=== PATIENT | male | born 1945 | race Caucasian/White ===

== ENCOUNTER 2022-02-01 10:20 | Inpatient (IN) ==
[2022-02-01 11:00] LABS: Basophils % 0.4 % (0.0-0.8); Eosinophils # 0.1 10*3/uL (0.0-0.87); Eosinophils % 1.3 % (0.00-10.9); Hematocrit 33.4 VOL% (42.0-52.0); Hemoglobin 10.4 GM/DL (14.0-18.0); Immature Granulocytes % 0.5 %; Immature Granulocytes Absolute 0.04 #; Lymphocytes # 0.8 10*3/uL (1.4-4.0); Lymphocytes % 10.2 % (21.2-54.2); Mean Corpuscular HGB Conc 31.1 GM/DL (32-36); Mean Corpuscular Volume 112.8 FL (87-102); Mean Platelet Volume 9.6 FL (9.6-12.0); Monocytes # 0.5 10*3/uL (0.11-0.8); Monocytes % 6.1 % (1.7-12.7); Neutrophils % 81.5 % (38.7-73.9); Platelet Count 225 T/CUMM (130-400); Red Blood Count 2.96 MC/CUMM (3.8-5.5); Red Cell Distribution Width 14.1 % (9.3-17.3); White Blood Count 7.4 T/CUMM (4-12)
[2022-02-01 11:23] LABS: Albumin 2.8 G/DL (3.4-5.0); Bilirubin,Total 1.3 MG/DL (0.20-1.00); Calcium 8.6 MG/DL (8.5-10.1); Total Protein 6.6 G/DL (6.4-8.2)
[2022-02-01 11:39] LABS: Potassium 6.9 MMOL/L (3.5-5.1)
[2022-02-01] MEDS ORDERED: SODIUM BICARBONATE 50 MEQ/50 ML VIAL IV STA (13:09)
[2022-02-01] MEDS ORDERED: DEXTROSE 50% 25 GM/50 ML VIAL IV STA (13:09)
[2022-02-01] MEDS ORDERED: CALCIUM CHLORIDE 1,000 MG/10 ML SYRINGE IV STA (13:09)
[2022-02-01] MEDS ORDERED: INSULIN REGULAR 100 UNIT/ML IV STA (13:09)
[2022-02-01] MEDS ORDERED: DEXTROSE 5% NACL 0.45% 1,000 ML IV SCH (13:30)
[2022-02-01] MEDS ORDERED: HYDROCORTISONE 100 MG VIAL IV STA ×2 (13:45→14:59)
[2022-02-01] MEDS ORDERED: ALBUTEROL 2.5 MG/3 ML NEB RESP TX PRN (13:45)
[2022-02-01] MEDS ORDERED: ONDANSETRON 4 MG/2 ML VIAL IV PRN (13:45)
[2022-02-01] MEDS ORDERED: MORPHINE 2 MG/1 ML SYRINGE IV PRN (13:45)
[2022-02-01] MEDS ORDERED: DEXTROSE 50% 25 GM/50 ML SYRINGE IV ONE (14:53)
[2022-02-01] MEDS: PANTOPRAZOLE 40 MG VIAL IV SCH (15:20)
[2022-02-01] MEDS: SODIUM BICARB INJ 150 MEQ in STERILE WATER INJ 1,000 ML IV SCH (15:21)
[2022-02-01] MEDS: ENOXAPARIN 30 MG/0.3 ML SYRINGE SUBCUT SCH (15:39)
[2022-02-01] MEDS: SODIUM ZIRCONIUM CYCLOSILICATE 10 GM PACK PO SCH ×2 (16:41→20:23)
[2022-02-01 17:09] LABS: Albumin 2.7 G/DL (3.4-5.0); Calcium 9.2 MG/DL (8.5-10.1); Osmolality,Calculated 298.5 MOS/KG (273-304); Phosphorous 7.4 MG/DL (2.5-4.9)
[2022-02-01 17:18] LABS: Potassium 7.1 MMOL/L (3.5-5.1)
[2022-02-02 05:41] LABS: Basophils % 0.2 % (0.0-0.8); Eosinophils % 0.2 % (0.00-10.9); Hematocrit 28.7 VOL% (42.0-52.0); Hemoglobin 9.2 GM/DL (14.0-18.0); Immature Granulocytes % 0.5 %; Immature Granulocytes Absolute 0.03 #; Lymphocytes # 0.6 10*3/uL (1.4-4.0); Lymphocytes % 10.3 % (21.2-54.2); Mean Corpuscular HGB Conc 32.1 GM/DL (32-36); Mean Corpuscular Volume 109.1 FL (87-102); Mean Platelet Volume 10.1 FL (9.6-12.0); Monocytes # 0.5 10*3/uL (0.11-0.8); Monocytes % 7.6 % (1.7-12.7); Neutrophils % 81.2 % (38.7-73.9); Platelet Count 206 T/CUMM (130-400); Red Blood Count 2.63 MC/CUMM (3.8-5.5); Red Cell Distribution Width 13.5 % (9.3-17.3)
[2022-02-02 06:01] LABS: Albumin 2.4 G/DL (3.4-5.0); Calcium 8.4 MG/DL (8.5-10.1); Phosphorous 7.7 MG/DL (2.5-4.9)
[2022-02-02 06:04] LABS: Potassium 6.9 MMOL/L (3.5-5.1)
[2022-02-02] MEDS: SODIUM BICARB INJ 150 MEQ in STERILE WATER INJ 1,000 ML IV SCH ×2 (07:09→22:38)
[2022-02-02] MEDS ORDERED: INSULIN REGULAR 10 UNIT, CALCIUM GLUCONATE 1,000 MG in DEXTROSE 10% 250 ML IV ONE (07:30)
[2022-02-02] MEDS: SODIUM ZIRCONIUM CYCLOSILICATE 10 GM PACK PO SCH ×3 (09:06→20:50)
[2022-02-02] MEDS: HYDROCORTISONE 10 MG TABLET PO SCH ×2 (09:14→20:50)
[2022-02-02] MEDS: PANTOPRAZOLE 40 MG VIAL IV SCH (14:04)
[2022-02-02] MEDS: ENOXAPARIN 30 MG/0.3 ML SYRINGE SUBCUT SCH (14:05)
[2022-02-02 16:45] LABS: Hepatitis B Core IgM Quant < 0.05 Index; Hepatitis B Surface Ag Quant < 0.10 Index; Hepatitis B Surface Ag Result Non-Reactive (NonReactive); Hepatitis C Virus Ab Quant 0.16 Index; Hepatitis C Virus Ab Result Non-Reactive (NonReactive)
[2022-02-03 05:53] LABS: Basophils % 0.6 % (0.0-0.8); Eosinophils # 0.3 10*3/uL (0.0-0.87); Eosinophils % 5.2 % (0.00-10.9); Hematocrit 27.6 VOL% (42.0-52.0); Hemoglobin 8.8 GM/DL (14.0-18.0); Immature Granulocytes % 0.2 %; Immature Granulocytes Absolute 0.01 #; Lymphocytes # 0.9 10*3/uL (1.4-4.0); Lymphocytes % 17.7 % (21.2-54.2); Mean Corpuscular HGB Conc 31.9 GM/DL (32-36); Mean Platelet Volume 9.8 FL (9.6-12.0); Monocytes # 0.4 10*3/uL (0.11-0.8); Monocytes % 8.3 % (1.7-12.7); Platelet Count 187 T/CUMM (130-400); Red Blood Count 2.58 MC/CUMM (3.8-5.5); Red Cell Distribution Width 13.9 % (9.3-17.3); White Blood Count 5.2 T/CUMM (4-12)
[2022-02-03 06:07] LABS: Calcium 7.9 MG/DL (8.5-10.1); Osmolality,Calculated 287.8 MOS/KG (273-304); Potassium 4.7 MMOL/L (3.5-5.1)
[2022-02-03] MEDS: HYDROCORTISONE 10 MG TABLET PO SCH ×2 (08:34→20:32)
[2022-02-03] MEDS: METOPROLOL TARTRATE 25 MG TABLET PO SCH ×2 (10:39→20:32)
[2022-02-03] MEDS: SODIUM BICARB INJ 150 MEQ in STERILE WATER INJ 1,000 ML IV SCH (11:40)
[2022-02-03] MEDS: PANTOPRAZOLE 40 MG VIAL IV SCH (13:07)
[2022-02-03] MEDS: ENOXAPARIN 30 MG/0.3 ML SYRINGE SUBCUT SCH (13:10)
[2022-02-03] MEDS: OMEGA 3 ACID ETHYL ESTERS 1 GM CAPSULE PO SCH (20:32)
[2022-02-03] MEDS: GABAPENTIN 100 MG CAPSULE PO SCH (20:32)
[2022-02-03] MEDS: MULTIVITAMIN (OCUVITE) TABLET PO SCH (20:32)
[2022-02-04] MEDS: SODIUM BICARB INJ 150 MEQ in STERILE WATER INJ 1,000 ML IV SCH ×2 (05:07→21:06)
[2022-02-04 05:08] LABS: Basophils % 0.5 % (0.0-0.8); Eosinophils # 0.3 10*3/uL (0.0-0.87); Eosinophils % 4.5 % (0.00-10.9); Hematocrit 26.6 VOL% (42.0-52.0); Hemoglobin 8.6 GM/DL (14.0-18.0); Immature Granulocytes % 0.4 %; Immature Granulocytes Absolute 0.02 #; Lymphocytes # 1.1 10*3/uL (1.4-4.0); Lymphocytes % 19.4 % (21.2-54.2); Mean Corpuscular HGB Conc 32.3 GM/DL (32-36); Mean Corpuscular Volume 107.3 FL (87-102); Mean Platelet Volume 9.9 FL (9.6-12.0); Monocytes # 0.6 10*3/uL (0.11-0.8); Monocytes % 10.3 % (1.7-12.7); Neutrophils % 64.9 % (38.7-73.9); Platelet Count 179 T/CUMM (130-400); Red Blood Count 2.48 MC/CUMM (3.8-5.5); Red Cell Distribution Width 13.7 % (9.3-17.3); White Blood Count 5.6 T/CUMM (4-12)
[2022-02-04 05:24] LABS: Calcium 7.8 MG/DL (8.5-10.1); Osmolality,Calculated 290.7 MOS/KG (273-304); Potassium 4.6 MMOL/L (3.5-5.1)
[2022-02-04] MEDS: MULTIVITAMIN (OCUVITE) TABLET PO SCH ×2 (10:03→21:05)
[2022-02-04] MEDS: ASCORBIC ACID 500 MG TABLET PO SCH (10:03)
[2022-02-04] MEDS: ASPIRIN EC 81 MG TABLET PO SCH (10:04)
[2022-02-04] MEDS: OMEGA 3 ACID ETHYL ESTERS 1 GM CAPSULE PO SCH ×2 (10:04→21:05)
[2022-02-04] MEDS: HYDROCORTISONE 10 MG TABLET PO SCH ×2 (10:04→21:05)
[2022-02-04] MEDS: GABAPENTIN 100 MG CAPSULE PO SCH ×2 (10:04→21:05)
[2022-02-04] MEDS: METOPROLOL TARTRATE 25 MG TABLET PO SCH (11:32)
[2022-02-04] MEDS: METOPROLOL TARTRATE 50 MG TABLET PO SCH (21:05)
[2022-02-04] MEDS: HEPARIN 5,000 UNIT/1 ML VIAL SUBCUT SCH (21:06)
[2022-02-05 04:51] LABS: Basophils % 0.5 % (0.0-0.8); Eosinophils # 0.3 10*3/uL (0.0-0.87); Eosinophils % 4.5 % (0.00-10.9); Hematocrit 27.8 VOL% (42.0-52.0); Immature Granulocytes % 0.3 %; Immature Granulocytes Absolute 0.02 #; Lymphocytes # 1.2 10*3/uL (1.4-4.0); Lymphocytes % 17.8 % (21.2-54.2); Mean Corpuscular HGB Conc 32.4 GM/DL (32-36); Mean Corpuscular Volume 106.1 FL (87-102); Mean Platelet Volume 9.9 FL (9.6-12.0); Monocytes # 0.6 10*3/uL (0.11-0.8); Monocytes % 9.5 % (1.7-12.7); Neutrophils % 67.4 % (38.7-73.9); Platelet Count 183 T/CUMM (130-400); Red Blood Count 2.62 MC/CUMM (3.8-5.5); Red Cell Distribution Width 13.5 % (9.3-17.3); White Blood Count 6.5 T/CUMM (4-12)
[2022-02-05 05:05] LABS: Calcium 7.7 MG/DL (8.5-10.1); Osmolality,Calculated 282.4 MOS/KG (273-304); Potassium 4.4 MMOL/L (3.5-5.1)
[2022-02-05] MEDS: PANTOPRAZOLE 40 MG TABLET PO SCH (06:12)
[2022-02-05] MEDS: HYDROCORTISONE 10 MG TABLET PO SCH ×2 (08:52→22:09)
[2022-02-05] MEDS: MULTIVITAMIN (OCUVITE) TABLET PO SCH ×2 (08:52→22:10)
[2022-02-05] MEDS: ASPIRIN EC 81 MG TABLET PO SCH (08:52)
[2022-02-05] MEDS: GABAPENTIN 100 MG CAPSULE PO SCH ×2 (08:53→22:10)
[2022-02-05] MEDS: ASCORBIC ACID 500 MG TABLET PO SCH (08:53)
[2022-02-05] MEDS: OMEGA 3 ACID ETHYL ESTERS 1 GM CAPSULE PO SCH ×2 (08:53→22:09)
[2022-02-05] MEDS ORDERED: HEPARIN 10,000 UNIT/10 ML VIAL IV PRN (10:47)
[2022-02-05] MEDS: HEPARIN 5,000 UNIT/1 ML VIAL SUBCUT SCH ×2 (10:52→22:09)
[2022-02-05] MEDS: METOPROLOL TARTRATE 50 MG TABLET PO SCH ×2 (12:51→22:09)
[2022-02-05] MEDS: SODIUM BICARB INJ 150 MEQ in STERILE WATER INJ 1,000 ML IV SCH (15:35)
[2022-02-06 05:11] LABS: Basophils % 0.4 % (0.0-0.8); Eosinophils # 0.3 10*3/uL (0.0-0.87); Eosinophils % 3.7 % (0.00-10.9); Hematocrit 30.1 VOL% (42.0-52.0); Hemoglobin 9.7 GM/DL (14.0-18.0); Immature Granulocytes % 0.4 %; Immature Granulocytes Absolute 0.03 #; Lymphocytes # 1.1 10*3/uL (1.4-4.0); Lymphocytes % 15.8 % (21.2-54.2); Mean Corpuscular HGB Conc 32.2 GM/DL (32-36); Mean Corpuscular Volume 106.7 FL (87-102); Mean Platelet Volume 10.3 FL (9.6-12.0); Monocytes # 0.6 10*3/uL (0.11-0.8); Monocytes % 9.3 % (1.7-12.7); Neutrophils % 70.4 % (38.7-73.9); Platelet Count 184 T/CUMM (130-400); Red Blood Count 2.82 MC/CUMM (3.8-5.5); Red Cell Distribution Width 13.3 % (9.3-17.3); White Blood Count 6.7 T/CUMM (4-12)
[2022-02-06 05:43] LABS: Calcium 7.7 MG/DL (8.5-10.1); Osmolality,Calculated 275.2 MOS/KG (273-304); Potassium 4.3 MMOL/L (3.5-5.1)
[2022-02-06] MEDS: SODIUM BICARB INJ 150 MEQ in STERILE WATER INJ 1,000 ML IV SCH (05:57)
[2022-02-06] MEDS: PANTOPRAZOLE 40 MG TABLET PO SCH (05:58)
[2022-02-06] MEDS ORDERED: MAGNESIUM SULF RIDER 2 GM/50 ML PREMIX IV ONE (07:32)
[2022-02-06] MEDS ORDERED: ALUM/MAG/SIMETH/LIDO VISC 1:1 30 ML BOTTLE PO ONE ×2 (08:59→10:30)
[2022-02-06] MEDS: ASCORBIC ACID 500 MG TABLET PO SCH (09:26)
[2022-02-06] MEDS: MULTIVITAMIN (OCUVITE) TABLET PO SCH ×2 (09:26→20:54)
[2022-02-06] MEDS: METOPROLOL TARTRATE 50 MG TABLET PO SCH ×2 (09:26→20:54)
[2022-02-06] MEDS: HEPARIN 5,000 UNIT/1 ML VIAL SUBCUT SCH ×2 (09:26→20:54)
[2022-02-06] MEDS: GABAPENTIN 100 MG CAPSULE PO SCH ×2 (09:26→20:54)
[2022-02-06] MEDS: HYDROCORTISONE 10 MG TABLET PO SCH ×2 (09:26→20:54)
[2022-02-06] MEDS: OMEGA 3 ACID ETHYL ESTERS 1 GM CAPSULE PO SCH ×2 (09:26→20:54)
[2022-02-06] MEDS: ASPIRIN EC 81 MG TABLET PO SCH (09:26)
[2022-02-06] MEDS: amLODIPine 5 MG TABLET PO SCH (15:10)
[2022-02-06] MEDS: hydrALAZINE 20 MG/1 ML VIAL IV PRN (17:04)
[2022-02-07 05:25] LABS: Basophils % 0.4 % (0.0-0.8); Eosinophils # 0.2 10*3/uL (0.0-0.87); Hematocrit 30.3 VOL% (42.0-52.0); Immature Granulocytes % 0.7 %; Immature Granulocytes Absolute 0.05 #; Lymphocytes # 1.2 10*3/uL (1.4-4.0); Lymphocytes % 15.8 % (21.2-54.2); Mean Corpuscular Volume 104.5 FL (87-102); Monocytes # 0.7 10*3/uL (0.11-0.8); Neutrophils % 71.1 % (38.7-73.9); Platelet Count 195 T/CUMM (130-400); Red Cell Distribution Width 13.2 % (9.3-17.3); White Blood Count 7.6 T/CUMM (4-12)
[2022-02-07 05:41] LABS: Calcium 8.3 MG/DL (8.5-10.1); Osmolality,Calculated 271.7 MOS/KG (273-304); Potassium 4.4 MMOL/L (3.5-5.1)
[2022-02-07] MEDS: PANTOPRAZOLE 40 MG TABLET PO SCH ×2 (05:45→20:57)
[2022-02-07] MEDS ORDERED: CLINDAMYCIN INJ 900 MG/50 ML PREMIX IV ONE (07:51)
[2022-02-07] MEDS ORDERED: amLODIPine 5 MG TABLET PO SCH (09:00)
[2022-02-07] MEDS: OMEGA 3 ACID ETHYL ESTERS 1 GM CAPSULE PO SCH ×2 (09:31→20:56)
[2022-02-07] MEDS: GABAPENTIN 100 MG CAPSULE PO SCH ×2 (09:32→20:57)
[2022-02-07] MEDS: MULTIVITAMIN (OCUVITE) TABLET PO SCH ×2 (09:32→20:56)
[2022-02-07] MEDS: ASCORBIC ACID 500 MG TABLET PO SCH (09:32)
[2022-02-07] MEDS: HYDROCORTISONE 10 MG TABLET PO SCH ×2 (09:32→20:56)
[2022-02-07] MEDS: ASPIRIN EC 81 MG TABLET PO SCH (09:32)
[2022-02-07] MEDS: METOPROLOL TARTRATE 50 MG TABLET PO SCH ×2 (09:33→20:56)
[2022-02-07] MEDS: amLODIPine 5 MG TABLET PO SCH (09:33)
[2022-02-07] MEDS: HEPARIN 5,000 UNIT/1 ML VIAL SUBCUT SCH ×2 (09:33→21:05)
[2022-02-07] MEDS ORDERED: ALUM/MAG/SIMETH/LIDO VISC 1:1 30 ML BOTTLE PO ONE (13:00)
[2022-02-07] MEDS: hydrALAZINE 20 MG/1 ML VIAL IV PRN (21:05)
[2022-02-08 05:18] LABS: Basophils % 0.3 % (0.0-0.8); Eosinophils # 0.1 10*3/uL (0.0-0.87); Eosinophils % 1.1 % (0.00-10.9); Hematocrit 30.8 VOL% (42.0-52.0); Hemoglobin 9.8 GM/DL (14.0-18.0); Immature Granulocytes % 0.6 %; Immature Granulocytes Absolute 0.04 #; Lymphocytes # 0.8 10*3/uL (1.4-4.0); Lymphocytes % 11.3 % (21.2-54.2); Mean Corpuscular HGB Conc 31.8 GM/DL (32-36); Mean Corpuscular Volume 106.9 FL (87-102); Mean Platelet Volume 9.9 FL (9.6-12.0); Monocytes # 0.4 10*3/uL (0.11-0.8); Monocytes % 5.9 % (1.7-12.7); Neutrophils % 80.8 % (38.7-73.9); Platelet Count 216 T/CUMM (130-400); Red Blood Count 2.88 MC/CUMM (3.8-5.5); White Blood Count 6.7 T/CUMM (4-12)
[2022-02-08 05:51] LABS: Calcium 7.8 MG/DL (8.5-10.1); Osmolality,Calculated 274.7 MOS/KG (273-304); Potassium 4.8 MMOL/L (3.5-5.1)
[2022-02-08] MEDS ORDERED: CLINDAMYCIN INJ 900 MG/50 ML PREMIX IV ONE (06:00)
[2022-02-08] MEDS ORDERED: KETAMINE 500 MG/10 ML VIAL ONE (08:43)
[2022-02-08] MEDS ORDERED: propofoL 200 MG/20 ML VIAL IV ONE (08:46)
[2022-02-08] MEDS ORDERED: LIDOCAINE 2% 5 ML VIAL ONE (08:46)
[2022-02-08] MEDS ORDERED: LACTATED RINGERS 1,000 ML IV SCH (09:00)
[2022-02-08] MEDS: OMEGA 3 ACID ETHYL ESTERS 1 GM CAPSULE PO SCH ×2 (11:01→20:36)
[2022-02-08] MEDS: ASPIRIN EC 81 MG TABLET PO SCH (11:01)
[2022-02-08] MEDS: HYDROCORTISONE 10 MG TABLET PO SCH ×2 (11:01→20:35)
[2022-02-08] MEDS: METOPROLOL TARTRATE 50 MG TABLET PO SCH ×2 (11:01→20:35)
[2022-02-08] MEDS: HEPARIN 5,000 UNIT/1 ML VIAL SUBCUT SCH ×2 (11:01→20:35)
[2022-02-08] MEDS: hydrALAZINE 25 MG TABLET PO SCH ×2 (11:01→20:35)
[2022-02-08] MEDS: ASCORBIC ACID 500 MG TABLET PO SCH (11:02)
[2022-02-08] MEDS: amLODIPine 10 MG TABLET PO SCH (11:02)
[2022-02-08] MEDS: GABAPENTIN 100 MG CAPSULE PO SCH ×2 (11:02→20:35)
[2022-02-08] MEDS: MULTIVITAMIN (OCUVITE) TABLET PO SCH ×2 (11:02→20:35)
[2022-02-08] MEDS: PANTOPRAZOLE 40 MG TABLET PO SCH ×2 (11:02→20:35)
[2022-02-08] MEDS: BISACODYL 5 MG TABLET PO SCH ×2 (13:34→20:35)
[2022-02-08] MEDS: LEVALBUTEROL 0.63 MG/3 ML NEB RESP TX SCH ×2 (14:31→19:16)
[2022-02-08] MEDS: SODIUM BICARBONATE 650 MG TABLET PO SCH ×2 (16:34→20:35)
[2022-02-08] MEDS ORDERED: POLYETHYLENE GLYCOL 3350/ELECTROLYTES 4,000 ML BOTTLE PO ONE (18:00)
[2022-02-08] MEDS ORDERED: MAGNESIUM HYDROXIDE SUSP 30 ML UDCUP PO ONE (21:00)
[2022-02-09] MEDS: LEVALBUTEROL 0.63 MG/3 ML NEB RESP TX SCH ×6 (00:38→23:50)
[2022-02-09] MEDS: BISACODYL 5 MG TABLET PO SCH (02:20)
[2022-02-09 06:27] LABS: Basophils % 0.5 % (0.0-0.8); Eosinophils # 0.2 10*3/uL (0.0-0.87); Eosinophils % 2.6 % (0.00-10.9); Hematocrit 31.8 VOL% (42.0-52.0); Hemoglobin 10.2 GM/DL (14.0-18.0); Immature Granulocytes % 0.6 %; Immature Granulocytes Absolute 0.04 #; Lymphocytes # 0.8 10*3/uL (1.4-4.0); Lymphocytes % 12.1 % (21.2-54.2); Mean Corpuscular HGB Conc 32.1 GM/DL (32-36); Mean Corpuscular Volume 107.8 FL (87-102); Mean Platelet Volume 10.3 FL (9.6-12.0); Monocytes # 0.6 10*3/uL (0.11-0.8); Monocytes % 8.5 % (1.7-12.7); Neutrophils % 75.7 % (38.7-73.9); Platelet Count 180 T/CUMM (130-400); Red Blood Count 2.95 MC/CUMM (3.8-5.5); Red Cell Distribution Width 13.2 % (9.3-17.3); White Blood Count 6.6 T/CUMM (4-12)
[2022-02-09 07:11] LABS: Calcium 8.1 MG/DL (8.5-10.1); Osmolality,Calculated 269.9 MOS/KG (273-304); Potassium 4.4 MMOL/L (3.5-5.1)
[2022-02-09] MEDS ORDERED: DEXTROSE 10% 250 ML BAG IV PRN (07:47)
[2022-02-09] MEDS ORDERED: DEXTROSE 50% 25 GM/50 ML VIAL IV ONE (07:58)
[2022-02-09] MEDS: LACTATED RINGERS 1,000 ML IV SCH (08:00)
[2022-02-09] MEDS ORDERED: DEXTROSE 50% 25 GM/50 ML SYRINGE IV ONE (08:06)
[2022-02-09] MEDS ORDERED: ETOMIDATE 20 MG/10 ML VIAL IV ONE (08:25)
[2022-02-09] MEDS ORDERED: propofoL 200 MG/20 ML VIAL IV ONE (08:25)
[2022-02-09] MEDS ORDERED: KETAMINE 500 MG/10 ML VIAL ONE (08:25)
[2022-02-09] MEDS ORDERED: LIDOCAINE 2% 5 ML VIAL ONE (08:25)
[2022-02-09] MEDS ORDERED: LACTATED RINGERS 1,000 ML IV SCH ×2 (10:00→13:30)
[2022-02-09] MEDS: HEPARIN 5,000 UNIT/1 ML VIAL SUBCUT SCH (10:27)
[2022-02-09] MEDS: amLODIPine 10 MG TABLET PO SCH (10:50)
[2022-02-09] MEDS: ASCORBIC ACID 500 MG TABLET PO SCH (10:50)
[2022-02-09] MEDS: PANTOPRAZOLE 40 MG TABLET PO SCH ×2 (10:51→20:44)
[2022-02-09] MEDS: hydrALAZINE 25 MG TABLET PO SCH ×2 (10:51→20:43)
[2022-02-09] MEDS: OMEGA 3 ACID ETHYL ESTERS 1 GM CAPSULE PO SCH ×2 (10:51→20:44)
[2022-02-09] MEDS: HYDROCORTISONE 10 MG TABLET PO SCH ×2 (10:51→20:44)
[2022-02-09] MEDS: ASPIRIN EC 81 MG TABLET PO SCH (10:51)
[2022-02-09] MEDS: GABAPENTIN 100 MG CAPSULE PO SCH ×2 (10:52→20:44)
[2022-02-09] MEDS: METOPROLOL TARTRATE 50 MG TABLET PO SCH ×2 (10:52→20:43)
[2022-02-09] MEDS: MULTIVITAMIN (OCUVITE) TABLET PO SCH ×2 (10:52→20:44)
[2022-02-09] MEDS ORDERED: FUROSEMIDE 100 MG/10 ML VIAL IV ONE (11:00)
[2022-02-09] MEDS: SODIUM BICARBONATE 650 MG TABLET PO SCH ×2 (12:01→20:43)
[2022-02-10 06:29] LABS: Calcium 7.9 MG/DL (8.5-10.1); Osmolality,Calculated 274.8 MOS/KG (273-304); Potassium 4.5 MMOL/L (3.5-5.1)
[2022-02-10] MEDS: LEVALBUTEROL 0.63 MG/3 ML NEB RESP TX SCH ×3 (07:20→19:35)
[2022-02-10 07:42] LABS: Basophils % 0.3 % (0.0-0.8); Eosinophils # 0.3 10*3/uL (0.0-0.87); Eosinophils % 3.8 % (0.00-10.9); Hematocrit 28.4 VOL% (42.0-52.0); Hemoglobin 9.1 GM/DL (14.0-18.0); Immature Granulocytes % 0.5 %; Immature Granulocytes Absolute 0.04 #; Lymphocytes # 0.9 10*3/uL (1.4-4.0); Lymphocytes % 12.3 % (21.2-54.2); Mean Corpuscular Volume 105.6 FL (87-102); Mean Platelet Volume 9.7 FL (9.6-12.0); Monocytes # 0.7 10*3/uL (0.11-0.8); Monocytes % 8.7 % (1.7-12.7); Neutrophils % 74.4 % (38.7-73.9); Platelet Count 196 T/CUMM (130-400); Red Blood Count 2.69 MC/CUMM (3.8-5.5); Red Cell Distribution Width 13.3 % (9.3-17.3); White Blood Count 7.6 T/CUMM (4-12)
[2022-02-10] MEDS: amLODIPine 10 MG TABLET PO SCH (09:30)
[2022-02-10] MEDS: ASCORBIC ACID 500 MG TABLET PO SCH (09:31)
[2022-02-10] MEDS: MULTIVITAMIN (OCUVITE) TABLET PO SCH ×2 (09:31→20:04)
[2022-02-10] MEDS: GABAPENTIN 100 MG CAPSULE PO SCH ×2 (09:31→20:04)
[2022-02-10] MEDS: PANTOPRAZOLE 40 MG TABLET PO SCH ×2 (09:32→20:04)
[2022-02-10] MEDS: OMEGA 3 ACID ETHYL ESTERS 1 GM CAPSULE PO SCH ×2 (09:33→20:04)
[2022-02-10] MEDS: hydrALAZINE 25 MG TABLET PO SCH ×2 (09:33→20:04)
[2022-02-10] MEDS: ASPIRIN EC 81 MG TABLET PO SCH (09:33)
[2022-02-10] MEDS: SODIUM BICARBONATE 650 MG TABLET PO SCH ×2 (09:33→20:04)
[2022-02-10] MEDS: METOPROLOL TARTRATE 50 MG TABLET PO SCH ×2 (09:34→20:04)
[2022-02-10] MEDS: HYDROCORTISONE 10 MG TABLET PO SCH ×2 (09:34→20:04)
[2022-02-10] MEDS: LACTATED RINGERS 1,000 ML IV SCH (12:00)
[2022-02-10] MEDS ORDERED: CLINDAMYCIN INJ 900 MG/50 ML PREMIX IV ONE (12:07)
[2022-02-10] MEDS: BUDESONIDE 3 MG CAPSULE PO SCH (16:15)
[2022-02-11] MEDS: LEVALBUTEROL 0.63 MG/3 ML NEB RESP TX SCH ×4 (00:10→19:10)
[2022-02-11 05:20] LABS: Basophils % 0.3 % (0.0-0.8); Eosinophils # 0.1 10*3/uL (0.0-0.87); Eosinophils % 0.8 % (0.00-10.9); Hematocrit 29.3 VOL% (42.0-52.0); Hemoglobin 9.2 GM/DL (14.0-18.0); Immature Granulocytes % 0.6 %; Immature Granulocytes Absolute 0.04 #; Lymphocytes # 0.6 10*3/uL (1.4-4.0); Lymphocytes % 8.9 % (21.2-54.2); Mean Corpuscular HGB Conc 31.4 GM/DL (32-36); Mean Corpuscular Volume 108.1 FL (87-102); Monocytes # 0.5 10*3/uL (0.11-0.8); Neutrophils % 82.4 % (38.7-73.9); Platelet Count 198 T/CUMM (130-400); Red Blood Count 2.71 MC/CUMM (3.8-5.5); Red Cell Distribution Width 13.3 % (9.3-17.3); White Blood Count 6.6 T/CUMM (4-12)
[2022-02-11 05:42] LABS: Calcium 7.9 MG/DL (8.5-10.1); Osmolality,Calculated 280.8 MOS/KG (273-304); Potassium 4.5 MMOL/L (3.5-5.1)
[2022-02-11] MEDS ORDERED: CLINDAMYCIN INJ 900 MG/50 ML PREMIX IV ONE (08:00)
[2022-02-11] MEDS ORDERED: BUPIVACAINE MPF 0.25% 10 ML VIAL ONE (09:50)
[2022-02-11] MEDS ORDERED: LIDOCAINE 1% 5 ML VIAL ONE (09:50)
[2022-02-11] MEDS ORDERED: HEPARIN 5,000 UNIT/1 ML VIAL ONE (09:51)
[2022-02-11] MEDS ORDERED: SODIUM CHLORIDE 0.9% 250 ML IV ONE (09:51)
[2022-02-11] MEDS ORDERED: MIDAZOLAM 2 MG/2 ML VIAL ONE (10:00)
[2022-02-11] MEDS ORDERED: KETAMINE 500 MG/10 ML VIAL ONE (10:00)
[2022-02-11] MEDS ORDERED: SODIUM CHLORIDE 0.9% 250 ML IV SCH (10:30)
[2022-02-11] MEDS ORDERED: LIDOCAINE 2% 5 ML VIAL ONE (11:00)
[2022-02-11] MEDS: BUDESONIDE 3 MG CAPSULE PO SCH (14:47)
[2022-02-11] MEDS: hydrALAZINE 25 MG TABLET PO SCH ×2 (14:47→22:08)
[2022-02-11] MEDS: ASPIRIN EC 81 MG TABLET PO SCH (14:47)
[2022-02-11] MEDS: HYDROCORTISONE 10 MG TABLET PO SCH ×2 (14:47→22:08)
[2022-02-11] MEDS: OMEGA 3 ACID ETHYL ESTERS 1 GM CAPSULE PO SCH ×2 (14:48→22:08)
[2022-02-11] MEDS: amLODIPine 10 MG TABLET PO SCH (14:48)
[2022-02-11] MEDS: METOPROLOL TARTRATE 50 MG TABLET PO SCH ×2 (14:48→22:08)
[2022-02-11] MEDS: GABAPENTIN 100 MG CAPSULE PO SCH ×2 (14:48→22:08)
[2022-02-11] MEDS: MULTIVITAMIN (OCUVITE) TABLET PO SCH ×2 (14:48→22:08)
[2022-02-11] MEDS: PANTOPRAZOLE 40 MG TABLET PO SCH ×2 (14:49→22:08)
[2022-02-11] MEDS: ASCORBIC ACID 500 MG TABLET PO SCH (14:49)
[2022-02-11] MEDS: SODIUM BICARBONATE 650 MG TABLET PO SCH (14:50)
[2022-02-12] MEDS: LEVALBUTEROL 0.63 MG/3 ML NEB RESP TX SCH ×5 (00:15→19:00)
[2022-02-12 05:13] LABS: Basophils % 0.5 % (0.0-0.8); Eosinophils # 0.3 10*3/uL (0.0-0.87); Eosinophils % 3.9 % (0.00-10.9); Hematocrit 29.2 VOL% (42.0-52.0); Hemoglobin 9.1 GM/DL (14.0-18.0); Immature Granulocytes Absolute 0.08 #; Lymphocytes # 0.6 10*3/uL (1.4-4.0); Lymphocytes % 7.2 % (21.2-54.2); Mean Corpuscular HGB Conc 31.2 GM/DL (32-36); Mean Corpuscular Volume 109.4 FL (87-102); Mean Platelet Volume 10.2 FL (9.6-12.0); Monocytes # 0.7 10*3/uL (0.11-0.8); Monocytes % 8.2 % (1.7-12.7); Neutrophils % 79.2 % (38.7-73.9); Platelet Count 207 T/CUMM (130-400); Red Blood Count 2.67 MC/CUMM (3.8-5.5); Red Cell Distribution Width 13.3 % (9.3-17.3); White Blood Count 8.3 T/CUMM (4-12)
[2022-02-12 05:14] LABS: Calcium 8.1 MG/DL (8.5-10.1); Potassium 4.4 MMOL/L (3.5-5.1)
[2022-02-12] MEDS ORDERED: EPOETIN ALFA-EPBX 3,000 UNIT/ML VIAL IV PRN (10:04)
[2022-02-12] MEDS: BUDESONIDE 3 MG CAPSULE PO SCH (10:08)
[2022-02-12] MEDS: ASPIRIN EC 81 MG TABLET PO SCH (10:08)
[2022-02-12] MEDS: MULTIVITAMIN (OCUVITE) TABLET PO SCH ×2 (10:08→21:18)
[2022-02-12] MEDS: ASCORBIC ACID 500 MG TABLET PO SCH (10:08)
[2022-02-12] MEDS: PANTOPRAZOLE 40 MG TABLET PO SCH ×2 (10:08→21:18)
[2022-02-12] MEDS: OMEGA 3 ACID ETHYL ESTERS 1 GM CAPSULE PO SCH ×2 (10:09→21:18)
[2022-02-12] MEDS: GABAPENTIN 100 MG CAPSULE PO SCH ×2 (10:09→21:18)
[2022-02-12] MEDS: HYDROCORTISONE 10 MG TABLET PO SCH ×2 (10:09→21:18)
[2022-02-12 10:37] LABS: % Iron Saturation 14.7 % (18-50); Ferritin 147.3 ng/mL (26-388)
[2022-02-12] MEDS ORDERED: ALUM/MAG/SIMETH/LIDO VISC 1:1 30 ML BOTTLE PO ONE (13:54)
[2022-02-12] MEDS: hydrALAZINE 25 MG TABLET PO SCH ×2 (15:51→21:17)
[2022-02-12] MEDS: METOPROLOL TARTRATE 50 MG TABLET PO SCH ×2 (15:52→21:18)
[2022-02-12] MEDS: amLODIPine 10 MG TABLET PO SCH (16:29)
[2022-02-12] MEDS: HEPARIN 5,000 UNIT/1 ML VIAL SUBCUT SCH ×2 (17:33→21:18)
[2022-02-13] MEDS: LEVALBUTEROL 0.63 MG/3 ML NEB RESP TX SCH ×4 (00:38→19:25)
[2022-02-13 05:32] LABS: Basophils # 0.1 10*3/uL (0.0-0.2); Basophils % 0.7 % (0.0-0.8); Eosinophils # 0.3 10*3/uL (0.0-0.87); Eosinophils % 3.1 % (0.00-10.9); Hematocrit 32.1 VOL% (42.0-52.0); Hemoglobin 9.7 GM/DL (14.0-18.0); Immature Granulocytes % 0.4 %; Immature Granulocytes Absolute 0.03 #; Lymphocytes # 0.9 10*3/uL (1.4-4.0); Lymphocytes % 10.4 % (21.2-54.2); Mean Corpuscular HGB Conc 30.2 GM/DL (32-36); Mean Corpuscular Volume 111.8 FL (87-102); Mean Platelet Volume 10.6 FL (9.6-12.0); Monocytes # 0.8 10*3/uL (0.11-0.8); Monocytes % 9.4 % (1.7-12.7); Platelet Count 196 T/CUMM (130-400); Red Blood Count 2.87 MC/CUMM (3.8-5.5); Red Cell Distribution Width 13.4 % (9.3-17.3); White Blood Count 8.4 T/CUMM (4-12)
[2022-02-13 05:33] LABS: Calcium 8.5 MG/DL (8.5-10.1); Osmolality,Calculated 276.8 MOS/KG (273-304); Potassium 4.5 MMOL/L (3.5-5.1)
[2022-02-13 06:13] LABS: Platelet Estimate Normal
[2022-02-13 06:14] LABS: Anisocytosis Slight; Macrocytosis 1+
[2022-02-13] MEDS: BUDESONIDE 3 MG CAPSULE PO SCH (09:56)
[2022-02-13] MEDS: METOPROLOL TARTRATE 50 MG TABLET PO SCH ×2 (09:56→21:00)
[2022-02-13] MEDS: hydrALAZINE 25 MG TABLET PO SCH ×2 (09:57→21:32)
[2022-02-13] MEDS: ASPIRIN EC 81 MG TABLET PO SCH (09:57)
[2022-02-13] MEDS: OMEGA 3 ACID ETHYL ESTERS 1 GM CAPSULE PO SCH ×2 (09:57→21:00)
[2022-02-13] MEDS: ASCORBIC ACID 500 MG TABLET PO SCH (09:57)
[2022-02-13] MEDS: MULTIVITAMIN (OCUVITE) TABLET PO SCH ×2 (09:57→21:35)
[2022-02-13] MEDS: GABAPENTIN 100 MG CAPSULE PO SCH ×2 (09:57→21:35)
[2022-02-13] MEDS: HYDROCORTISONE 10 MG TABLET PO SCH ×2 (09:57→21:32)
[2022-02-13] MEDS: PANTOPRAZOLE 40 MG TABLET PO SCH ×2 (09:58→21:35)
[2022-02-13] MEDS: amLODIPine 10 MG TABLET PO SCH (09:58)
[2022-02-13] MEDS: HEPARIN 5,000 UNIT/1 ML VIAL SUBCUT SCH ×2 (09:58→21:32)
[2022-02-13] MEDS ORDERED: ALUM/MAG/SIMETH/LIDO VISC 1:1 30 ML BOTTLE PO PRN (10:01)
[2022-02-14] MEDS: LEVALBUTEROL 0.63 MG/3 ML NEB RESP TX SCH ×4 (01:10→19:15)
[2022-02-14 04:50] LABS: Basophils % 0.3 % (0.0-0.8); Eosinophils # 0.1 10*3/uL (0.0-0.87); Eosinophils % 1.8 % (0.00-10.9); Hematocrit 31.5 VOL% (42.0-52.0); Hemoglobin 9.5 GM/DL (14.0-18.0); Immature Granulocytes % 0.3 %; Immature Granulocytes Absolute 0.02 #; Lymphocytes # 0.9 10*3/uL (1.4-4.0); Lymphocytes % 13.2 % (21.2-54.2); Mean Corpuscular HGB Conc 30.2 GM/DL (32-36); Mean Corpuscular Volume 111.7 FL (87-102); Mean Platelet Volume 10.8 FL (9.6-12.0); Monocytes # 0.6 10*3/uL (0.11-0.8); Monocytes % 9.4 % (1.7-12.7); Platelet Count 197 T/CUMM (130-400); Red Blood Count 2.82 MC/CUMM (3.8-5.5); Red Cell Distribution Width 13.2 % (9.3-17.3); White Blood Count 6.5 T/CUMM (4-12)
[2022-02-14 05:15] LABS: Calcium 9.2 MG/DL (8.5-10.1); Osmolality,Calculated 284.4 MOS/KG (273-304); Potassium 5.1 MMOL/L (3.5-5.1)
[2022-02-14] MEDS: HYDROCORTISONE 10 MG TABLET PO SCH ×2 (09:21→21:07)
[2022-02-14] MEDS: ASPIRIN EC 81 MG TABLET PO SCH (09:21)
[2022-02-14] MEDS: MULTIVITAMIN (OCUVITE) TABLET PO SCH ×2 (09:22→21:07)
[2022-02-14] MEDS: BUDESONIDE 3 MG CAPSULE PO SCH (09:22)
[2022-02-14] MEDS: METOPROLOL TARTRATE 50 MG TABLET PO SCH ×2 (09:22→21:08)
[2022-02-14] MEDS: PANTOPRAZOLE 40 MG TABLET PO SCH ×2 (09:22→21:07)
[2022-02-14] MEDS: GABAPENTIN 100 MG CAPSULE PO SCH ×2 (09:22→21:08)
[2022-02-14] MEDS: ASCORBIC ACID 500 MG TABLET PO SCH (09:22)
[2022-02-14] MEDS: amLODIPine 10 MG TABLET PO SCH (09:22)
[2022-02-14] MEDS: hydrALAZINE 25 MG TABLET PO SCH ×2 (09:25→21:07)
[2022-02-14] MEDS: OMEGA 3 ACID ETHYL ESTERS 1 GM CAPSULE PO SCH ×2 (09:25→21:07)
[2022-02-14] MEDS: HEPARIN 5,000 UNIT/1 ML VIAL SUBCUT SCH ×2 (09:26→21:08)
[2022-02-15] MEDS: LEVALBUTEROL 0.63 MG/3 ML NEB RESP TX SCH ×3 (02:17→13:05)
[2022-02-15 04:58] LABS: Basophils % 0.4 % (0.0-0.8); Eosinophils # 0.1 10*3/uL (0.0-0.87); Eosinophils % 1.7 % (0.00-10.9); Hematocrit 28.5 VOL% (42.0-52.0); Hemoglobin 8.8 GM/DL (14.0-18.0); Immature Granulocytes % 0.4 %; Immature Granulocytes Absolute 0.03 #; Lymphocytes # 0.8 10*3/uL (1.4-4.0); Lymphocytes % 11.3 % (21.2-54.2); Mean Corpuscular HGB Conc 30.9 GM/DL (32-36); Mean Corpuscular Volume 109.6 FL (87-102); Mean Platelet Volume 9.6 FL (9.6-12.0); Monocytes # 0.7 10*3/uL (0.11-0.8); Monocytes % 9.3 % (1.7-12.7); Neutrophils % 76.9 % (38.7-73.9); Platelet Count 228 T/CUMM (130-400); Red Cell Distribution Width 13.3 % (9.3-17.3); White Blood Count 7.1 T/CUMM (4-12)
[2022-02-15 05:15] LABS: Osmolality,Calculated 288.3 MOS/KG (273-304); Potassium 4.7 MMOL/L (3.5-5.1)
[2022-02-15] MEDS: ASPIRIN EC 81 MG TABLET PO SCH (08:25)
[2022-02-15] MEDS: MULTIVITAMIN (OCUVITE) TABLET PO SCH (08:25)
[2022-02-15] MEDS: HYDROCORTISONE 10 MG TABLET PO SCH (08:25)
[2022-02-15] MEDS: GABAPENTIN 100 MG CAPSULE PO SCH (08:25)
[2022-02-15] MEDS: BUDESONIDE 3 MG CAPSULE PO SCH (08:25)
[2022-02-15] MEDS: OMEGA 3 ACID ETHYL ESTERS 1 GM CAPSULE PO SCH (08:26)
[2022-02-15] MEDS: hydrALAZINE 25 MG TABLET PO SCH (08:26)
[2022-02-15] MEDS: ASCORBIC ACID 500 MG TABLET PO SCH (08:26)
[2022-02-15] MEDS: PANTOPRAZOLE 40 MG TABLET PO SCH (08:26)
[2022-02-15] MEDS: amLODIPine 10 MG TABLET PO SCH (08:26)
[2022-02-15] MEDS: METOPROLOL TARTRATE 50 MG TABLET PO SCH (08:26)
[2022-02-15] MEDS: HEPARIN 5,000 UNIT/1 ML VIAL SUBCUT SCH (08:29)
[2022-02-15 14:21] VITALS: BP 122/58
== END 2022-02-15 16:37 | DRG 673 ==
LOC: N.ED 10:20 → N.EDINP 13:45 → SUATTDRO 13:45 → N.CC 16:00 → N.5E 02-03 16:59 → N.2E 02-15 10:05
PROVIDERS: ADMIT Internal Medicine; ATTEND Hospitalist